=== PATIENT | female | born 1965 | race Caucasian/White ===

== ENCOUNTER 2017-08-30 06:58 | Day surgery (SDC) | payer BC ==
[~2017-08-30] VITALS: Ht 154.9 cm; Wt 47.3 kg
[~2017-08-30 06:58] MED LIST: ALBU0.086 NEB; ASPI81TA82 PO; GARL500T PO; LOVA20TA PO; MULT-11 PO
[2017-08-30] MEDS ORDERED: IOHEXOL 180 MG/ML 20 ML VIAL (for RAD DIAG) IT ONE (06:59)
[2017-08-30 07:15] VITALS: BP 105/67; PULSE 89; RESP 20; TEMP 98.3; O2SAT 97
[2017-08-30] MEDS ORDERED: ALBU0.08 NEB (07:29)
[2017-08-30] MEDS ORDERED: BUPR100T4 PO (07:29)
[2017-08-30] MEDS ORDERED: ASPI-516 CHEW (07:29)
[2017-08-30] MEDS ORDERED: LOVA40TA PO (07:29)
[2017-08-30] MEDS ORDERED: MULT1TAB46 (07:29)
[2017-08-30] MEDS ORDERED: DIAZEPAM 5 MG TAB PO SCH (07:30)
[2017-08-30] MEDS ORDERED: LACTATED RINGER'S 1000 ML INJ 1,000 ML IV SCH (07:30)
[2017-08-30 07:46] LABS: AUTOMATED NEUTROPHIL # 2.2 TH/MM3 (1.8-7.7); BASOPHIL % 0.5 % (0.0-2.0); EOSINOPHIL # 0.1 TH/MM3 (0-0.4); EOSINOPHIL % 2.9 % (0.0-4.0); HEMATOCRIT 47.2 % (35.0-46.0); HEMOGLOBIN 16.4 GM/DL (11.6-15.3); LYMPH % 40.7 % (9.0-44.0); MEAN CELL VOLUME 101.2 FL (80.0-100.0); MEAN CORPUSCULAR HEMOGLOBIN 35.3 PG (27.0-34.0); MEAN CORPUSCULAR HGB CONC 34.8 % (32.0-36.0); MEAN PLATELET VOLUME 8.9 FL (7.0-11.0); MONOCYTE # 0.5 TH/MM3 (0-0.9); NEUT % 45.9 % (16.0-70.0); PLATELET COUNT 174 TH/MM3 (150-450); RED BLOOD COUNT 4.66 MIL/MM3 (4.00-5.30); RED CELL DISTRIBUTION WIDTH 13.9 % (11.6-17.2); WHITE BLOOD COUNT 4.9 TH/MM3 (4.0-11.0)
[2017-08-30 07:52] LABS: PROTHROMBIN TIME - PATIENT 10.3 SEC (9.8-11.6)
[2017-08-30 07:56] LABS: BICARBONATE 29.1 MEQ/L (21.0-32.0); CALCIUM 8.8 MG/DL (8.5-10.1); CREATININE 0.71 MG/DL (0.50-1.00)
--- NOTE | 2017-08-30 09:57 | PD.RAD ---
Post Procedure Progress Note Pre Procedure Diagnosis: (1) Back pain Post Procedure Diagnosis: (1) Back pain Procedure Date: Aug 30, 2017 Supervising Radiologist: Torey Mendoza Proceduralist/Assist: RT Mariano(R), RT Mik(R) Anesthesia: Local Plan of Activity Patient to Unit: [facility] Patient Condition: Good See PACS Report for procedural detail/treatment Spinal Procedure Myelogram L3-L4 Fluid Description: Torey Bell MD Aug 30, 2017 09:57
[2017-08-30 11:05] VITALS: BP 133/74; PULSE 67; RESP 18; O2SAT 93
--- NOTE | 2017-08-30 11:17 | RADRPT ---
EXAM DATE/TIME: 08/30/2017 10:51 [facility] COMPARISON: No previous studies available for comparison. INDICATIONS : Post myelogram, radiculaopathy RADIATION DOSE: 21.46 CTDIvol (mGy) CT of thelumbar spine was performed post myelogram. MEDICAL HISTORY : None SURGICAL HISTORY : None. ENCOUNTER: Initial ACUITY: 1 day PAIN SCALE: 2/10 LOCATION: low back TECHNIQUE: Volumetric scanning of the lumbar spine was performed. Multiplanar reconstructions in the sagittal, coronal and oblique axial planes were performed. Using automated exposure control and adjustment of the mA and/or kV according to patient size, radiation dose was kept as low as reasonably achievable t o obtain optimal diagnostic quality images. DICOM format image data is available electronically for review and comparison. FINDINGS: Contrast throughout the intrathecal space from the myelogram. VERTEBRAE: Normal vertebral body height. ALIGNMENT: No evidence of subluxation. T12-L1: The thecal sac has a normal diameter. No evidence of disc bulge or protrusion. The neural foramina are patent bilaterally. L1-L2: The thecal sac has a normal diameter. No evidence of disc bulge or protrusion. The neural foramina are patent bilaterally. L2-L3: The thecal sac has a normal diameter. No evidence of disc bulge or protrusion. The neural foramina are patent bilaterally. L3-L4: The thecal sac has a normal diameter. No evidence of disc bulge or protrusion. The neural foramina are patent bilaterally. L4-L5: The thecal sac has a normal diameter. No evidence of disc bulge or protrusion. The neural foramina are patent bilaterally. L5-S1: There is a right posterior lateral disc protrusion the displaces the S1 nerve root posteriorly from t he lateral recess. The left lateral recess and central canal are patent. The disc extends into the ri ght neural foramen but does not abut the exiting L5 nerve root. CONCLUSION: 1. Right posterior lateral disc protrusion at L5-S1 with displacement of the S1 nerve root from the l ateral recess and potential source for S1 radiculopathy on the right. Otherwise, patent central canal and neural foramina throughout. Sheldon Max Jr., MD on August 30, 2017 at 11:08 Board Certified Radiologist. This report was verified electronically.
[2017-08-30 13:45] VITALS: BP 128/72; PULSE 79; RESP 16; O2SAT 96
--- NOTE | 2017-08-30 13:47 | RADRPT ---
EXAM DATE/TIME: 08/30/2017 09:28 [facility] COMPARISON: CT LUMBAR SPINE W/O CONTRAST, August 30, 2017, 10:51. INDICATIONS : Patient presents with history of back pain in need lumbar myelogram for further evaluation. MEDICAL HISTORY : Hx of neck and lower back pain COPD CAD High cholesterol SURGICAL HISTORY : Right lumpectomy Hysterectomy Stent placement ENCOUNTER: Initial ACUITY: > 1 year PAIN SCORE: 0/10 LOCATION: N/A LUMBAR PUNCTURE TIME: 09:46 hours FLUORO TIME: 0.9 minutes IMAGE SERIES: 0 CONTRAST: 12 cc Omnipaque (iohexol) 180 ACCESS LEVEL: L3-4 PROCEDURE : 1. Fluoroscopic guided lumbar puncture. 2. Lumbar myelogram. The risks, benefits and alternatives to the procedure were explained and verbal and written consent w as obtained. The site was prepped in sterile fashion. Full sterile technique was used, including ca p, mask, sterile gloves and gown and a large sterile sheet. Hand hygiene and 2% chlorhexidine and/or betadine/alcohol prep was utilized per protocol for cutaneous antisepsis. The skin and subcutaneous tissues were infiltrated with local anesthetic solution. With fluoroscopic guidance the lumbar thecal sac was punctured at level above and a diagnostic quanti ty of contrast is present in the subarachnoid space. Radiographs were obtained of the lumbar spine. T he radiographs demonstrate no disc protrusion or spinal canal stenosis though there is incomplete melody ling of the caudal thecal sac and the L5-S1 level cannot be evaluated. The patient tolerated procedure well and there were no complications. CT scan is to be performed for further evaluation. CONCLUSION: Uncomplicated lumbar myelogram as above. CT scan is to be performed for further evalu ation. Torey Mendoza MD on August 30, 2017 at 13:43 Board Certified Radiologist. This report was verified electronically.
== END 2017-08-30 13:55 | disposition home or self-care (01) ==
LOC: HROP 06:58 → HRIP 06:59 → HROP 13:55
PROVIDERS: ATTEND Physician Assistant Medical
DX: M51.16 Intervertebral disc disorders with radiculopathy, lumbar region (principal); J44.9 Chronic obstructive pulmonary disease, unspecified; Z79.01 Long term (current) use of anticoagulants
CPT/HCPCS: 62304; 72131; 80048; 85025; 85610; 85730; J7120; Q9965

== ENCOUNTER → 2017-10-06 | Outpatient (CLI) | payer BC ==
[~2017-10-06] MED LIST changes: +ALBU0.08 NEB; -ALBU0.086 NEB; +ASPI-516 CHEW; -ASPI81TA82 PO; +BUPR100T4 PO; -GARL500T PO; +HYDR-3583 PO; -LOVA20TA PO; +LOVA40TA PO; -MULT-11 PO; +MULT1TAB46; +TURM1CAP6 PO; +WALKER WHEELS/F1 MIS
[2017-10-06 10:26] LABS: BILIRUBIN, URINE NEG (NEG); BLOOD, URINE SMALL (NEG); GLUCOSE,URINE NEG (NEG); KETONE, URINE NEG (NEG); NITRITE,URINE NEG (NEG); SQUAMOUS EPITHELIAL CELL URINE <1 /hpf (0-5); URINE COLOR LIGHT-YELLOW (YELLW/STRAW); URINE LEUKOCYTE ESTERASE NEG (NEG)
[2017-10-06 10:30] LABS: PROTHROMBIN TIME - PATIENT 10.2 SEC (9.8-11.6)
[2017-10-06 10:33] LABS: AUTOMATED NEUTROPHIL # 2.3 TH/MM3 (1.8-7.7); BASOPHIL % 0.7 % (0.0-2.0); EOSINOPHIL # 0.1 TH/MM3 (0-0.4); HEMATOCRIT 47.7 % (35.0-46.0); HEMOGLOBIN 16.5 GM/DL (11.6-15.3); LYMPH % 39.6 % (9.0-44.0); LYMPHOCYTE # 1.9 TH/MM3 (1.0-4.8); MEAN CELL VOLUME 101.6 FL (80.0-100.0); MEAN CORPUSCULAR HEMOGLOBIN 35.2 PG (27.0-34.0); MEAN CORPUSCULAR HGB CONC 34.7 % (32.0-36.0); MEAN PLATELET VOLUME 9.2 FL (7.0-11.0); MONO % 8.8 % (0.0-8.0); MONOCYTE # 0.4 TH/MM3 (0-0.9); NEUT % 47.9 % (16.0-70.0); PLATELET COUNT 203 TH/MM3 (150-450); WHITE BLOOD COUNT 4.8 TH/MM3 (4.0-11.0)
[2017-10-06 10:45] LABS: ALBUMIN 3.8 GM/DL (3.4-5.0); ALT (GPT) 40 U/L (10-53); AST (GOT) 29 U/L (15-37); BICARBONATE 29.2 MEQ/L (21.0-32.0); BLOOD UREA NITROGEN 12 MG/DL (7-18); CALCIUM 8.9 MG/DL (8.5-10.1); CHLORIDE 105 MEQ/L (98-107); CREATININE 0.71 MG/DL (0.50-1.00); GLOMERULAR FILTRATION RATE 86 ML/MIN (>89); GLUCOSE,FASTING 85 MG/DL (74-99); SODIUM (NA) 139 MEQ/L (136-145)
[2017-10-06 10:48] LABS: ALKALINE PHOSPHATASE 86 U/L (45-117); TOTAL BILIRUBIN ADULT 0.4 MG/DL (0.2-1.0); TOTAL PROTEIN 7.7 GM/DL (6.4-8.2)
--- NOTE | 2017-10-06 11:03 | RADRPT ---
EXAM DATE/TIME: 10/06/2017 10:12 [facility] COMPARISON: No previous studies available for comparison. INDICATIONS : Evaluate for pneumonia, pneumothorax, and communicable diseases. Pre-op low back surgery. MEDICAL HISTORY : None. SURGICAL HISTORY : None. ENCOUNTER: Initial ACUITY: 1 day PAIN SCORE: 0/10 LOCATION: Bilateral chest FINDINGS: PA and lateral views of the chest demonstrate the lungs to be symmetrically aerated without evidence of mass, infiltrate or effusion. The cardiomediastinal contours are unremarkable. Osseous structure s are intact. CONCLUSION: No acute disease. Pardeep Ruvalcaba MD FACR on October 06, 2017 at 11:00 Board Certified Radiologist. This report was verified electronically.
--- NOTE | 2017-10-06 20:49 | EKG ---
Date Performed: 10/06/2017 Time Performed: 09:40:13 PTAGE: 52 years EKG: Sinus rhythm SEPTAL MYOCARDIAL INFARCTION, OF INDETERMINATE AGE ABNORMAL ECG PREVIOUS TRACING : 01/14/2016 08.02 Since the previous tracing, no significant change noted DOCTOR: Phillip Fatima Interpretating Date/Time 10/06/2017 20:47:56
== END ==
LOC: CPRE 09:15
PROVIDERS: ATTEND Neurological Surgery
DX: Z01.810 Encounter for preprocedural cardiovascular examination (principal); Z01.811 Encounter for preprocedural respiratory examination; Z01.812 Encounter for preprocedural laboratory examination; Z01.818 Encounter for other preprocedural examination; M51.16 Intervertebral disc disorders with radiculopathy, lumbar region; R94.31 Abnormal electrocardiogram [ECG] [EKG]
CPT/HCPCS: 36415; 71046; 80053; 81001; 85025; 85610; 85730; 87640; 87641; 93005

== ENCOUNTER 2017-10-12 06:21 | Observation (INO) | payer BC ==
[~2017-10-12] VITALS: Ht 154.9 cm; Wt 48.0 kg
[~2017-10-12 06:21] MED LIST changes: -HYDR-3583 PO; -WALKER WHEELS/F1 MIS
[2017-10-12] MEDS ORDERED: POVIDONE IODINE 5% (ANTISEPSIS KIT) 4 APPLICATIONS EACH NARE PRN (06:45)
[2017-10-12] MEDS ORDERED: SODIUM CHLORID 0.9% 500 ML IV PRN (06:45)
[2017-10-12] MEDS ORDERED: CHLORHEXIDINE GLUCONATE 2 % 1 PACK (2 CLOTHS) TOPICAL PRN (06:45)
[2017-10-12] MEDS ORDERED: ceFAZolin 2 GM/DEX PREMIX 50 ML IV SCH (06:45)
[2017-10-12] MEDS ORDERED: LACTATED RINGER'S 1000 ML IV PRN (06:45)
[2017-10-12] MEDS ORDERED: METOPROLOL TARTRATE 25 MG TAB PO PRN (06:45)
[2017-10-12] MEDS ORDERED: ACETAMINOPHEN 1000 MG/100 ML 100 ML IV ONE (07:06)
[2017-10-12] MEDS ORDERED: GENTAMICIN SULFATE 80 MG/2 ML VIAL ONE (07:08)
[2017-10-12] MEDS ORDERED: methylPREDNISolone ACETATE 40 MG/ML VIAL ONE (07:08)
[2017-10-12] MEDS ORDERED: GELFOAM SIZE 100 ONE (07:08)
[2017-10-12] MEDS ORDERED: THROMBIN (TOPICAL) 5,000 UNIT VIAL ONE (07:08)
[2017-10-12] MEDS ORDERED: BUPIVACAINE HCL PF 0.5% 30 ML VIAL ONE (07:32)
[2017-10-12] MEDS ORDERED: RESP: ALBUTEROL 2.5 MG/3 ML NEB (SCH) ONE (08:18)
[2017-10-12] MEDS ORDERED: methylPREDNISolone SOD SUCC 125 MG/2 ML VIAL ONE (08:18)
[2017-10-12] MEDS ORDERED: FAMOTIDINE 20 MG/2 ML VIAL ONE (08:18)
[2017-10-12] MEDS ORDERED: RESP: ALBUTEROL 2.5 MG/3 ML NEB (PRN) NEB (10:45)
[2017-10-12] MEDS ORDERED: ACETAMINOPHEN/HYDROcodone 325 MG/10 MG TAB PO PRN (10:45)
[2017-10-12] MEDS ORDERED: MORPHINE SULFATE 4 MG/ML INJ IV PUSH PRN (10:45)
[2017-10-12] MEDS ORDERED: ACETAMINOPHEN 325 MG TAB PO PRN (10:45)
[2017-10-12] MEDS ORDERED: MORPHINE SULFATE 2 MG/ML SYRINGE IV PUSH PRN (10:45)
[2017-10-12] MEDS ORDERED: DO NOT ADM ANY ANTICOAGULANT DRUGS PRN (10:56)
[2017-10-12] MEDS: NS + KCL 20 MEQ INJ 1,000 ML IV SCH ×2 (11:00→22:47)
[2017-10-12] MEDS ORDERED: MIDAZOLAM HCL 2 MG/2 ML VIAL ONE (11:04)
[2017-10-12] MEDS ORDERED: HYDR-3583 PO (11:06)
[2017-10-12] MEDS ORDERED: *morphine SULFATE 4 MG/ML PERIprocedure ONLY ONE (11:19)
--- NOTE | 2017-10-12 11:19 | PD.OP ---
Operative Report Date of Surgery: Oct 12, 2017 Preoperative Diagnosis: L5-S1 disc herniation Postoperative Diagnosis: L5-S1 disc herniation Procedure: Left L5-S1 hemilaminectomy and microdiscectomy Anesthesia: general endotracheal Surgeon: Samuel Eugene Streetcar Operator(s): Jacqueline Johnson Operation and Findings: INDICATIONS FOR THE SURGICAL PROCEDURE Ms Mccauley is a 62 year-old fedmale who presented with intractable mechanical back pain and clinical evidence of left S1 lower extremity radiculopathy. She was found to have a disk herniation significant stenosis with significant mass effect on the neural structures which correlated with the clinical symptoms. The patient has failed maximum nonsurgical management. A surgical decompression were indicated as a last resort. The [id number] details of the procedure, indications, alternatives, risks and potential complications were fully discussed with the patient. The patient fully understood. All the questions were answered. No guarantees were given. The patient voiced requesting the procedure and signed informed consents. The patient was offered the alternative of delaying the procedure and continuing with nonsurgical management. DETAILS OF THE SURGICAL PROCEDURE After the induction of general anesthesia, endotracheal intubation was performed. A Zambrano catheter, bilateral PATTI hose and sequential compression devices were placed and kept throughout the procedure. The patient was positioned prone on a Levi table over a Sergio frame. All pressure points were carefully padded with eggcrate mattress. The eyes were tapped shut after ointment was applied by the anesthesiologist to prevent corneal abrasion. A Fuentes hugger was placed over the exposed lower body to maintain control of the core body temperature. The lower lumbar region was prepped and draped in the usual sterile fashion. A spinal needle was placed for localization and an x- ray performed with a C-arm. A skin incision was made in the midline over the spinous processes L5-S1 with a #10 blade. Small subcutaneous bleeders were controlled with a bipolar and the dissection was carried out through the lumbar fascia exposing the spinous processes. A subperiosteal dissection was performed with a Kyle elevator and a Bovie over the left L5-S1 spinous process lamina and facets. A microdiscectomy self-retaining retractor was placed on the incision and an x-ray was obtained with an instrument placed underneath the lamina. At this point in the procedure the operating microscope was draped in the usual sterile fashion and brought to the field. The rest of the surgical procedure was performed using microsurgical dissection technique with exception of the closure. Once the level was confirmed, a decompressive laminectomy was performed at L5- S1 on thew left side using the TPS drill with an AM-8 drill bit. A medial facetectomy was performed and the superior free border of the ligamentum flavum was dissected with a ligament dissector and removed with a thin footplate 2 mm Kerrison The medial facetectomy allowed me to expose the S1 nerve root, which was identified and followed towards its exit in the foramen. Epidural veins located laterally to the dural sac were coagulated with a bipolar and incised with microscissors. Gentle medial retraction of the dural sac allowed inspection of the disc space. The patient had a disc herniation, causing mass effect over the exiting nerve root. The annulus fibrosus of the disc was coagulated with the bipolar and incised with an 11 blade. The extruded disc was carefully dissected from the surrounding tissue and removed with pituitary forceps. Then, a microdiscectomy was carried out in the standard fashion using straight and up-biting pituitary forceps. A good decompression of the dural sac and nerve root was achieved. The exit of the nerve root was inspected for residual disc fragments and hemostasis was secured with the bipolar. The incision was irrigated with a large amount of saline solution. A Valsalva maneuver failed to show any cerebrospinal fluid leak or bleeding. The decompression was assessed again and found to be satisfactory. The incision was then closed in layers. The fascia was closed with 0 Vicryl sutures in an interrupted fashion. The superficial fascia was closed with 0 Vicryl sutures. The fascia was infiltrated with 0.5% Marcaine with epinephrine 1:100,000 dilution. The subcutaneous tissue was irrigated then closed with 0 Vicryl and 3 -0 Vicryl. The skin was closed with 4-0 running subcuticular Vicryl. Dermabond was applied to the skin. A sterile dressing was applied. At the end of the procedure, the sponge, needle and instrument counts were all correct. Estimated blood loss was less than 40 cc. No blood transfusion was given. No intraoperative complications occurred. The patient received prophylactic antibiotics. The patient was then extubated and transferred to the recovery room in stable condition. Samuel Eugene MD Oct 12, 2017 11:19
[2017-10-12] MEDS ORDERED: PROPOFOL 200 MG/20 ML AMP IV ONE (12:00)
[2017-10-12] MEDS ORDERED: ONDANSETRON HCL 4 MG/2 ML VIAL IV ONE (12:00)
[2017-10-12] MEDS ORDERED: LACTATED RINGER'S 1000 ML INJ 1,000 ML IV ONE (12:00)
[2017-10-12] MEDS ORDERED: PHENYLEPH/NS 1000 MCG/10 ML SYR IV ONE (12:00)
[2017-10-12] MEDS ORDERED: NEOSTIGMINE 5 MG/5 ML SYRINGE IV PUSH ONE (12:00)
[2017-10-12] MEDS ORDERED: LIDOCAINE HCL 1% PF 5 ML SYRINGE OTHER ONE (12:00)
[2017-10-12] MEDS ORDERED: ePHEDrine/NS 25 MG/5 ML SYRINGE IV ONE (12:00)
[2017-10-12] MEDS ORDERED: GLYCOPYRROLATE 1 MG/5 ML SYRINGE IV PUSH ONE (12:00)
[2017-10-12] MEDS ORDERED: ROCURONIUM INJ 50 MG/5 ML SYRINGE IV PUSH ONE (12:00)
[2017-10-12] MEDS ORDERED: *morphine SULFATE 8 MG/ML PERIprocedure ONLY ONE (12:11)
[2017-10-12 14:10] VITALS: BP 114/64; PULSE 81; RESP 18; TEMP 97.8; O2SAT 98
[2017-10-12] MEDS ORDERED: LOVA40TA PO (14:52)
[2017-10-12 16:00] VITALS: BP 110/56; PULSE 95; RESP 16; TEMP 97.9; O2SAT 95
[2017-10-12] MEDS: ceFAZolin 2 GM PREMIX 50 ML IV SCH ×2 (16:45→22:47)
[2017-10-12 20:00] VITALS: BP 111/55; PULSE 90; RESP 18; TEMP 98.4; O2SAT 92
--- NOTE | 2017-10-12 20:11 | RADRPT ---
EXAM DATE/TIME: 10/12/2017 09:26 [facility] COMPARISON: No previous studies available for comparison. INDICATIONS : L5-S1 Laminectomy. MEDICAL HISTORY : Chronic obstructive pulmonary disease. Gastroesophageal reflux disease. Cardiovascular disease. S moker. SURGICAL HISTORY : Hysterectomy. Right lumpectomy. ENCOUNTER: Initial ACUITY: 1 day PAIN SCORE: Non-responsive. LOCATION: Lumbar spine. CONCLUSION: Lateral fluoroscopic image demonstrates temporary probe posterior to L5-S1. Giovanny Ruffin MD on October 12, 2017 at 20:08 Board Certified Radiologist. This report was verified electronically.
[2017-10-12] MEDS: DOCUSATE SODIUM 100 MG CAP PO SCH (20:36)
[2017-10-12] MEDS: buPROPion HCL 100 MG TAB PO SCH (20:36)
[2017-10-12] MEDS: ACETAMINOPHEN/HYDROcodone 325 MG/10 MG TAB PO PRN (22:48)
[2017-10-13] VITALS: BP 107/55; PULSE 71; RESP 18; TEMP 98; O2SAT 93
[2017-10-13 04:00] VITALS: BP 98/52; PULSE 78; RESP 18; TEMP 97.8; O2SAT 91
[2017-10-13] MEDS: ACETAMINOPHEN/HYDROcodone 325 MG/10 MG TAB PO PRN ×2 (04:58→11:20)
[2017-10-13 08:00] VITALS: BP 105/50; PULSE 70; RESP 18; TEMP 98.1; O2SAT 94
[2017-10-13] MEDS ORDERED: TURMERIC PO SCH (09:00)
[2017-10-13] MEDS ORDERED: PANTOPRAZOLE SOD 40 MG DELAYED RELEASE TAB PO SCH (09:00)
[2017-10-13] MEDS ORDERED: TURMERIC EXT PO SCH (09:00)
[2017-10-13] MEDS ORDERED: PEPR EXT PO SCH (09:00)
[2017-10-13] MEDS ORDERED: PRAVASTATIN SOD 80 MG TAB PO SCH (09:00)
[2017-10-13] MEDS: ceFAZolin 2 GM PREMIX 50 ML IV SCH (09:01)
[2017-10-13] MEDS: buPROPion HCL 100 MG TAB PO SCH (09:01)
[2017-10-13] MEDS: DOCUSATE SODIUM 100 MG CAP PO SCH (09:01)
[2017-10-13] MEDS: NS + KCL 20 MEQ INJ 1,000 ML IV SCH (09:05)
[2017-10-13 12:00] VITALS: BP 112/50; PULSE 75; RESP 18; TEMP 98.3; O2SAT 95
[2017-10-13] MEDS ORDERED: WALKER WHEELS/F1 MIS (12:43)
--- NOTE | 2017-10-13 12:51 | HHI.DCPOC ---
Discharge Care Plan Diagnosis: (1) S/P lumbar laminectomy Goals to Promote Your Health * To prevent worsening of your condition and complications * To maintain your health at the optimal level Directions to Meet Your Goals Take your medications as prescribed Follow your dietary instruction Follow activity as directed Keep your appointments as scheduled Take your immunizations and boosters as scheduled If your symptoms worsen call your PCP, if no PCP go to Urgent Care Center or Emergency Room Smoking is Dangerous to Your Health. Avoid second hand smoke Call the 24-hour hour crisis hotline for domestic abuse at Claudine Chilel Oct 13, 2017 12:51
--- NOTE | 2017-10-13 12:55 | HHI.DS ---
Discharge Summary Admission Date Oct 12, 2017 at 10:48 Discharge Date: Oct 13, 2017 Admitting Diagnosis s/p lumbar laminectomy (1) S/P lumbar laminectomy ICD Code: Z98.890 - Other specified postprocedural states Brief History Ms Mccauley is a 62 year-old female who presented with intractable mechanical back pain and clinical evidence of left S1 lower extremity radiculopathy. She was found to have a disk herniation significant stenosis with significant mass effect on the neural structures which correlated with the clinical symptoms. The patient has failed maximum nonsurgical management. A surgical decompression were indicated as a last resort. Imaging Last Impressions Lumbar Spine X-Ray 10/12/17 0000 Signed Impressions: Service Date/Time: Thursday, October 12, 2017 09:26 - CONCLUSION: Lateral fluoroscopic image demonstrates temporary probe posterior to L5-S1. Giovanny Ruffin MD PE at Discharge Ms. Jeff is alert, awake and oriented to time, place and person. Speech is fluent. Wound with clean, dry Optifoam dressing. Cranial nerve examination: pupils equal, round and reactive to light. Extra- ocular movements are intact. Facial motor are normal and symmetrical. Neck is soft and supple Muscle strength is 5/5 bilat iliopsoas, quadriceps, hamstrings, plantarflexion, dorsiflexion. Gait: ambulating around the room unassisted with mild stiffness, no other major abnormalities Hospital Course Date of Surgery: Oct 12, 2017 Ms. Mccauley is s/p Left L5-S1 hemilaminectomy and microdiscectomy on 10/12/17 for L5-S1 disc herniation. She reports improvement of her preop radicular pain , she reports some increased numbness following S1 distribution, she denies changes to her strength, bowel or bladder incontinence. Pt Condition on Discharge: Stable Discharge Disposition: Discharge Home Discharge Instructions DIET: Follow Instructions for: Heart Healthy Diet ACTIVITIES You can perform: Weight Bearing As Mansi ADDITIONAL Activity Instructio: Avoid strenuous activities, heavy lifting, bending, twising, excessive pushing, pulling, or any other activities that may place stress on the spine. Wear corset brace when out of bed. Avoid falls. New Medications: Walker with Front Wheels (Walker with Front Wheels) 1 Mis Mis EA .XX DIRECTED, #1 0 Refills Hydrocodone/Acetaminophen (Hydrocodone-Acetamin 10-325 mg) 10 Mg-325 Mg Tablet 1 TAB PO Q8HR PRN for PAIN SCALE 1 TO 10, #62 TAB-CAP 0 Refills Continued Medications: Albuterol Neb (Albuterol Neb) 2.5 Mg/3 Ml Neb 2.5 MG NEB TID NEB PRN for SHORTNESS OF BREATH, #60 NEBULE 0 Refills Aspirin (Aspirin) 81 Mg Chew 81 MG CHEW DAILY, TAB 0 Refills Bupropion HCl (Bupropion HCl) 100 Mg Tab 100 MG PO BID for Control Depression, TAB 0 Refills Multiple Vitamin (Multi Vitamin Daily) 1 Tab Tab 1 DAILY Turmeric/Turmeric Ext/Pepr Ext (Turmeric Complex 500 mg Cap) 500 Mg-3 Mg Capsule 1 CAP PO DAILY for Nutritional Supplement Claudine Chilel Oct 13, 2017 12:55
== END 2017-10-13 14:27 | disposition home or self-care (01) ==
LOC: HSDC 06:21 → HSDI 10:48 → N05A 14:09
PROVIDERS: ADMIT Neurological Surgery; ATTEND Neurological Surgery
DX: M51.27 Other intervertebral disc displacement, lumbosacral region (principal); J44.9 Chronic obstructive pulmonary disease, unspecified; K21.9 Gastro-esophageal reflux disease without esophagitis; E78.5 Hyperlipidemia, unspecified; I73.9 Peripheral vascular disease, unspecified
CPT/HCPCS: 00630; 63047; 72020; 76000; 94150; 96365; 96366; 96367; 96368; 96375; 97163; G0378; J0131; J0690; J1030; J1580; J2250; J2270; J2370; J2405; J2710; J2930; J3010; J3480; J7120; J7613; L0627

== ENCOUNTER 2017-11-11 07:58 | Emergency (ER) | payer BC ==
[~2017-11-11 07:58] MED LIST changes: +HYDR-3583 PO; +WALKER WHEELS/F1 MIS
[2017-11-11] MEDS ORDERED: IOHEXOL 350 MG/ML 10 ML VIAL (for RAD DIAG) IVCONTRAST ONE (07:59)
[2017-11-11 08:02] VITALS: BP 100/51; PULSE 94; RESP 16; TEMP 98.5; O2SAT 99
[2017-11-11] MEDS ORDERED: HYDROmorphone HCL PF 2 MG/ML VIAL IVS ONE (08:15)
[2017-11-11] MEDS ORDERED: SODIUM CHLOR 0.9% 1000 ML INJ 1,000 ML IV SCH (08:15)
[2017-11-11] MEDS ORDERED: PROCHLORPERAZINE INJ 10 MG/2 ML VIAL IV PUSH ONE (08:15)
[2017-11-11 08:23] VITALS: RESP 12
[2017-11-11 08:57] LABS: AUTOMATED NEUTROPHIL # 5.7 TH/MM3 (1.8-7.7); BASOPHIL % 0.3 % (0.0-2.0); EOSINOPHIL # 0.1 TH/MM3 (0-0.4); EOSINOPHIL % 1.5 % (0.0-4.0); HEMATOCRIT 48.6 % (35.0-46.0); LYMPHOCYTE # 1.6 TH/MM3 (1.0-4.8); MEAN CELL VOLUME 101.5 FL (80.0-100.0); MEAN CORPUSCULAR HEMOGLOBIN 35.5 PG (27.0-34.0); MEAN CORPUSCULAR HGB CONC 34.9 % (32.0-36.0); MEAN PLATELET VOLUME 9.1 FL (7.0-11.0); MONO % 6.8 % (0.0-8.0); MONOCYTE # 0.5 TH/MM3 (0-0.9); NEUT % 71.4 % (16.0-70.0); PLATELET COUNT 177 TH/MM3 (150-450); RED BLOOD COUNT 4.79 MIL/MM3 (4.00-5.30); RED CELL DISTRIBUTION WIDTH 14.4 % (11.6-17.2)
[2017-11-11 09:20] LABS: CALCIUM 9.2 MG/DL (8.5-10.1); CREATININE 0.69 MG/DL (0.50-1.00)
--- NOTE | 2017-11-11 11:05 | PD ---
HPI Chief Complaint: Back/ Neck Pain or Injury Time Seen by Provider: 08:08 Travel History International Travel<30 days: No Contact w/Intl Traveler<30days: No Traveled to known affect area: No History of Present Illness HPI This is a 52-year-old female who is status post mini laminectomy 1 month prior, presents today with complaints of worsening back pain. Patient also reports sciatica down her left leg. There is no reported fevers, chills. The patient has no bowel or bladder incontinence. She reports that on Mother's Day she she walked on the beach with her . She states shortly after that the pain was worse. She reports it has gotten somewhat better however it is still painful across her back and around her pelvis. There are no other complaints at the time of my examination. PFSH Past Medical History Hx Anticoagulant Therapy: Yes (PLAVIX) Cancer: No Cardiovascular Problems: Yes (CAD, ILIAC STENOSIS WTIH STENTS X2) High Cholesterol: Yes Diabetes: No Diminished Hearing: No Endocrine: No Gastrointestinal Disorders: Yes (REFLUX) Genitourinary: No Hepatitis: No Hiatal Hernia: No Hypertension: No Immune Disorder: No Musculoskeletal: Yes (HERNIATED DISC IN NECK AND LOWER BACK, TAILBONE SHATTERED ) Neurologic: Yes (NUMNESS LOWER LEGS BILAT) Psychiatric: No Reproductive: No Respiratory: Yes (COPD) Immunizations Current: No Thyroid Disease: No ?: Not Past Surgical History AICD: No Body Medical Devices: STENTS X 2 Cardiac Surgery: Yes (ILIAC STENTS IN [place]ORTA) Gynecologic Surgery: Yes ( PARTIAL HYSTERECTOMY AT AGE 37) Hysterectomy: Yes Joint Replacement: No Pacemaker: No Other Surgery: Yes ( ) Social History Alcohol Use: Yes (2 GLASSES OF WINE A NIGHT) Tobacco Use: Yes (1 PPD) Substance Use: No Allergies-Medications (Allergen,Severity, Reaction): Coded Allergies: No Known Allergies (Unverified Allergy, Unknown, 11/11/17) Reported Meds & Prescriptions Reported Meds & Active Scripts Active Flexeril (Cyclobenzaprine HCl) 10 Mg Tab 10 Mg PO TID Hydrocodone-Acetamin 10-325 mg (Hydrocodone/Acetaminophen) 10 Mg-325 Mg Tablet 1 Tab PO Q8HR PRN Reported Lovastatin 40 Mg Tab 80 Mg PO DAILY Turmeric Complex 500 mg Cap (Turmeric/Turmeric Ext/Pepr Ext) 500 Mg-3 Mg Capsule 1 Cap PO DAILY Albuterol Neb (Albuterol Sulfate) 2.5 Mg/3 Ml Neb 2.5 Mg NEB TID NEB PRN Multi Vitamin Daily (Multiple Vitamin) 1 Tab Tab 1 DAILY Aspirin 81 Mg Chew 81 Mg CHEW DAILY Review of Systems Except as stated in HPI: all other systems reviewed are Neg General / Constitutional: No: Fever, Chills HENT: No: Headaches, Neck Pain Cardiovascular: No: Chest Pain or Discomfort, Palpitations Respiratory: No: Cough, Shortness of Breath Gastrointestinal: No: Nausea, Vomiting, Abdominal Pain Genitourinary: No: Dysuria, Incontinence Musculoskeletal: Positive: Pain (Lumbar at L3-L4 distribution.), Other (Left lower extremity sciatica), No: Weakness Skin: No Rash, No Lesions Neurologic: Positive: Paresthesia (Sciatica left lower extremity.), No: Weakness, Dizziness, Headache Physical Exam Narrative GENERAL: Well-developed well-nourished female in no acute respiratory distress. SKIN: Focused skin assessment warm/dry. HEAD: Atraumatic. Normocephalic. EYES: Pupils equal and round. No scleral icterus. No injection or drainage. ENT: No nasal bleeding or discharge. Mucous membranes pink and moist. NECK: Trachea midline. Supple. CARDIOVASCULAR: Regular rate and rhythm. No murmur appreciated. RESPIRATORY: No accessory muscle use. Clear to auscultation. Breath sounds equal bilaterally. GASTROINTESTINAL: Abdomen soft, non-tender, nondistended. Hepatic and splenic margins not palpable. BACK: No CVA tenderness. No rash. No redness or drainage from surgical site. Patient reports bandlike pain across the lower back. MUSCULOSKELETAL: No obvious deformities. No clubbing. No cyanosis. No edema. NEUROLOGICAL: Awake and alert. No obvious cranial nerve deficits. Motor grossly within normal limits. Normal speech. Data Data Last Documented VS Vital Signs Date Time Temp Pulse Resp B/P (MAP) Pulse Ox O2 Delivery O2 Flow Rate FiO2 11/11/17 13:05 74 14 119/59 (79) 97 Room Air 11/11/17 08:02 98.5 Orders Orders Complete Blood Count With Diff (11/11/17 08:15) Basic Metabolic Panel (Bmp) (11/11/17 08:15) Iv Access Insert/Monitor (11/11/17 08:15) Ecg Monitoring (11/11/17 08:15) Oximetry (11/11/17 08:15) Hydromorphone Pf Inj (Dilaudid Pf Inj) (11/11/17 08:15) Prochlorperazine Inj (Compazine Inj) (11/11/17 08:15) Sodium Chlor 0.9% 1000 Ml Inj (Ns 1000 M (11/11/17 08:15) Ct Lumb Spine W&W/O Iv Contras (11/11/17 ) Iohexol 350 Inj (Omnipaque 350 Inj) (11/11/17 07:59) Labs Laboratory Tests Test 11/11/17 08:30 White Blood Count 8.0 TH/MM3 Red Blood Count 4.79 MIL/MM3 Hemoglobin 17.0 GM/DL Hematocrit 48.6 % Mean Corpuscular Volume 101.5 FL Mean Corpuscular Hemoglobin 35.5 PG Mean Corpuscular Hemoglobin Concent 34.9 % Red Cell Distribution Width 14.4 % Platelet Count 177 TH/MM3 Mean Platelet Volume 9.1 FL Neutrophils (%) (Auto) 71.4 % Lymphocytes (%) (Auto) 20.0 % Monocytes (%) (Auto) 6.8 % Eosinophils (%) (Auto) 1.5 % Basophils (%) (Auto) 0.3 % Neutrophils # (Auto) 5.7 TH/MM3 Lymphocytes # (Auto) 1.6 TH/MM3 Monocytes # (Auto) 0.5 TH/MM3 Eosinophils # (Auto) 0.1 TH/MM3 Basophils # (Auto) 0.0 TH/MM3 CBC Comment DIFF FINAL Differential Comment Blood Urea Nitrogen 14 MG/DL Creatinine 0.69 MG/DL Random Glucose 100 MG/DL Calcium Level 9.2 MG/DL Sodium Level 139 MEQ/L Potassium Level 4.1 MEQ/L Chloride Level 103 MEQ/L Carbon Dioxide Level 27.0 MEQ/L Anion Gap 9 MEQ/L Estimat Glomerular Filtration Rate 89 ML/MIN [facility] Medical Decision Making Medical Screen Exam Complete: Yes Emergency Medical Condition: Yes Differential Diagnosis Lumbar strain versus reherniation versus abscess Narrative Course 82-year-old female status post microlaminectomy 1 month prior, presents today with low back pain and pain and numbness down her left leg. The patient had a CT scan with contrast that showed degenerative changes with some herniated disks. Films were reviewed with Dr. Samuel Eugene, patient's neurosurgeon, who reports that he does not believe that these symptoms are secondary to her back. The patient also noted to have what appeared to be occluded left iliac stent. Patient does have dopplerable pulses in her left lower extremity. It is warm to the touch. I spoke with Dr. Kwasi Valdez, patient's vascular surgeon , who stated that at this point this is not an emergency however he would like to see her in his office on Wednesday. The patient will be instructed to call the office and let the office staff know that he is wishing to see her on Wednesday. She will be given a prescription for Flexeril in addition to her Lortabs. She is instructed to take the Lortabs every 6 hours for the next 2 days. She is also instructed to take the Flexeril every 8 hours. She is also instructed to avoid alcohol and driving. I have also recommended that she stop smoking cigarettes. Moist heat every 6-8 hours. Avoid heavy lifting. Return if feeling worse. Diagnosis Primary Impression: Lumbago of lumbar region with sciatica Additional Impressions: Occluded left iliac stent Tobacco use Additional Instructions: Avoid heavy lifting. Moist heat every 6-8 hours 2-3 days. Return if feeling worse. Follow-up with Dr. Valdez on Wednesday. Call the office and let them know that Dr. Valdez and I have discussed her case and he is wishing to see her on Wednesday. Stop smoking. Med/Other Pt SpecificInfo: Prescription(s) given Scripts Cyclobenzaprine (Flexeril) 10 Mg Tab 10 MG PO TID for Muscle Spasm, #15 TAB 0 Refills Prov: Joe Cardona MD 11/11/17 Disposition: 01 DISCHARGE HOME Condition: Stable Joe Cardona MD November 11, 2017 11:05
--- NOTE | 2017-11-11 12:43 | RADRPT ---
EXAM DATE/TIME: 11/11/2017 11:42 [facility] COMPARISON: CT LUMBAR SPINE W/O CONTRAST, August 30, 2017, 10:51. INDICATIONS : Lower back pain, left leg numbness. Laminectomy one month ago. IV CONTRAST: 71 cc Omnipaque 350 (iohexol) IV RADIATION DOSE: 17.0 CTDIvol (mGy) MEDICAL HISTORY : Cardiovascular disease. SURGICAL HISTORY : Hysterectomy. ENCOUNTER: Initial ACUITY: 2 days PAIN SCALE: 5/10 LOCATION: lower back TECHNIQUE: Volumetric scanning of the lumbar spine was performed. Multiplanar reconstructions in the sagittal, coronal and oblique axial planes were performed. Using automated exposure control and adjustment of the mA and/or kV according to patient size, radiation dose was kept as low as reasonab ly achievable to obtain optimal diagnostic quality images. DICOM format image data is available antonio ctronically for review and comparison. FINDINGS: The most caudal-appearing lumbar vertebra is numbered as L5. The marrow signal appears intact. No si gnificant compression deformities, spondylolisis, or spondylolesthesis is seen. there are postsurgica l changes in the lumbar spine at the level of L4-5, L5-S1 level in the subcutaneous tissue. There are atherosclerotic changes of aorta with aortobiiliac stent in place and the left common iliac stent ap pears completely occluded. There is however reconstitution distally at the level of the external helder c vein. A L1-L2: No appreciable compromise to the thecal sac, or the exiting nerve roots is seen. The neur al foramina and lateral recesses are patent bilaterally. L2-L3: No appreciable compromise to the thecal sac, or the exiting nerve roots is seen. The neur al foramina and lateral recesses are patent bilaterally. L3-L4: No appreciable compromise to the thecal sac, or the exiting nerve roots is seen. The neur al foramina and lateral recesses are patent bilaterally. L4-L5: Asymmetrical bulging disc is present towards the left with partial extension into the left neural foramen slightly abutting the exiting nerve root. No appreciable thecal sac stenosis is seen. L5-S1: Asymmetrical bulging disc and broad-based disc protrusion are present on the right side im pinges the exiting S1 nerve root and moderate degree and causes slight compromise to right lateral re cess not significantly changed. There is also mild blunting of the exiting S1 nerve root on the left side without any significant thecal sac stenosis. There appears to be laminectomy on the left side at this level. IMPRESSION: 1. There is no appreciable change in broad-based is protrusion in a symmetrical buldging disc on the right L5-S1 impinging the exiting S1 nerve roots a moderate degree. There is also slight abutting of the exiting left S1 nerve root. 2. Slight symmetrical buldging disc left L4-5. 3. Patient has bilateral aorta iliac stents and the left iliac stent appears occluded. Noemi Diaz MD on November 11, 2017 at 12:32 Board Certified Radiologist. This report was verified electronically.
[2017-11-11 13:05] VITALS: BP 119/59; PULSE 74; RESP 14; O2SAT 97
[2017-11-11] MEDS ORDERED: CYCL10TA PO (14:21)
== END 2017-11-11 14:44 | disposition home or self-care (01) ==
LOC: NEPE 07:58
DX: M54.42 Lumbago with sciatica, left side (principal); T82.858A Stenosis of other vascular prosthetic devices, implants and grafts, initial encounter; F17.210 Nicotine dependence, cigarettes, uncomplicated; E78.00 Pure hypercholesterolemia, unspecified
CPT/HCPCS: 72133; 80048; 85025; 96374; 96375; 99284; J0780; J1170; J7030; Q9967